=== PATIENT | female | born 1960 | race Caucasian/White ===

== ENCOUNTER 2018-08-11 07:20 | Day surgery (SDC) | payer OTHER ==
[~2018-08-11] VITALS: Ht 160 cm; Wt 56.7 kg
[~2018-08-11 07:20] MED LIST: FALMINA1 EACH PO; OMEGA 3 1,0001 EACH; OMEGA-31000 MG PO
--- NOTE | 2018-08-11 08:44 | NUR ---
08/11/18 0844 Kalyani Gil 0836 PATIENT ARRIVES TO PACU ASLEEP, AWAKENS WITH VERBAL STIMULI, ANSWERS QUESTIONS APPROPRIATELY. RESP EVEN AND UNLABORED, NC AT 2 LITERS TURNED OFF ON ARRIVAL TO PACU. ROOM AIR SATS 99%. PATIENT DENIES PAIN OR NAUSEA. 0840 PATIENT AWAKE OFF/ON. RESP EVEN AND UNLABORED. DR FLORES AND SPOUSE AT BEDSIDE.
--- NOTE | 2018-08-12 12:32 | OR ---
[facility] [address], [place] [address] Signed DATE OF OPERATION: 08/11/2018 SURGEON: Pedro Flores MD PREOPERATIVE DIAGNOSIS: Colon screening. POSTOPERATIVE DIAGNOSIS: Normal colon to cecum. PROCEDURE PERFORMED: Total colonoscopy to cecum. ANESTHESIA: Intravenous sedation (fentanyl 100 mcg, Versed 5 mg). INDICATION: This 58-year-old white woman is a patient of Dr. Marian Alvarado, who is here for a screening colonoscopy. She has long-standing chronic constipation, which is currently no issue for her. She has had no blood per rectum or diarrhea. She has not had colonoscopy in the past. She has no family history of colon cancer. She uses Senna tea for constipation issues, which is effective. She is admitted at this time to undergo a screening colonoscopy. Understands the risks of bleeding, infection, perforation, and findings. The prep was excellent. Complete colonoscopy was undertaken to the cecum without problem. The appendiceal orifice and ileocecal valve were well visualized. There was no sign of diverticular formation, colitis, cancer, polyps, or other abnormality. DESCRIPTION OF PROCEDURE: The patient was brought to the endoscopy suite and placed in lateral decubitus position. Given intravenous sedation to the point of slurred speech and nystagmus. Digital rectal examination was normal. An Olympus video colonoscope was passed in the rectum and manipulated throughout the colon ultimately intubating the cecum itself. The ileocecal valve and appendiceal orifice were normal. The scope was carefully withdrawn and examination throughout showed no sign of abnormality specifically in the diverticular formation, colitis, cancer, polyps, or other abnormality. Retroflexed view of the rectum was normal as well. The scope was removed and the patient was taken to recovery room in good condition. Electronically Signed By: PEDRO FLORES MD 08/12/18 1232 PATIENT NAME: BRAYDON MITCHELL OPERATIVE REPORT DATE OF : 60 REPORT #: [id number] PHYSICIAN: PEDRO FLORES MD PCP: MELISSA ROCA MD REPORT IS CONFIDENTIAL AND NOT TO BE RELEASED WITHOUT AUTHORIZATION [facility] [address], [place] [address] Signed CONCLUDING DIAGNOSIS: Normal colon to cecum. PLAN: Recommend repeat colonoscopy in 10 years or sooner if clinically indicated. I would recommend MiraLAX as an alternative to her current regimen if it becomes ineffective. Pedro Flores MD JM/MODL /[id number] cc: Marian Alvarado MD Copies: MARIAN ALVARADO MD ~ Electronically Signed By: PEDRO FLORES MD 08/12/18 1232 PATIENT NAME: BRAYDON MITCHELL OPERATIVE REPORT DATE OF : 60 REPORT #: [id number] PHYSICIAN: PEDRO FLORES MD PCP: MELISSA ROCA MD REPORT IS CONFIDENTIAL AND NOT TO BE RELEASED WITHOUT AUTHORIZATION
== END 2018-08-11 09:10 | disposition home or self-care (01) ==
LOC: OPS 07:20 → DS 07:20 → OPS 08:30
PROVIDERS: Surgery
PROC: 0DJD8ZZ Inspection of Lower Intestinal Tract, Via Natural or Artificial Opening Endoscopic (ICD-10-PCS; principal; 2018-08-11 08:30)
DX: Z12.11 Encounter for screening for malignant neoplasm of colon (principal)
CPT/HCPCS: 99153; G0500; J2250; J3010; J7120

== ENCOUNTER 2020-04-25 08:55 | Day surgery (SDC) | payer OTHER ==
[~2020-04-25] VITALS: Ht 160 cm; Wt 55.0 kg
[~2020-04-25 08:55] MED LIST changes: +ACETYL L-CARNI500 MG PO; +ASTRAGALUS ROOT1 GM MISC; +CALCIUM + D3 E1 EACH PO; +DEXAMETHASONE4 MG PO; +DIGESTIVE ENZY220 MG PO; +GALZIN50 MG PO; +LORAZEPAM1 MG PO; +MAGNESIUM100 MG PO; +RESTONE CAPSUL1 EACH PO; +TYLENOL325 M1 PO; +ZOFRAN4 MG PO; +[UNRECOGNIZED DRUG - OTHER] PO
--- NOTE | 2020-04-25 10:24 | NUR ---
has been to br.
--- NOTE | 2020-04-25 11:39 | NUR ---
04/25/20 1139 Ela Webber 1133- PT ARRIVES TO PACU AROUSABLE TO VOICE, SLEEPY. OXYGEN SAT HIGH 90'S TO 100% ON 10L VIA MASK. 1136- OXYGEN TITRATED DOWN TO 6L VIA MASK.
--- NOTE | 2020-04-25 12:10 | NUR ---
PT ARRIVED FROM PACU TO DAY SURGERY RM 2. REPORT RECIEVED, PT PROVIDED CRACKERS AND ICE WATER. PT RESTING IN LOCKED AND LOWERED BED, SIDE RAILS UP, CALL LIGHT WITHIN REACH, AT THE BEDSIDE, NO FURTHER REQUESTS AT THIS TIME.
--- NOTE | 2020-04-25 13:47 | NUR ---
1325 AMB TO BR VOIDS 150ML YELLOW URINE.
--- NOTE | 2020-04-25 15:08 | OR ---
[facility] [address], [place] [address] Signed DATE OF OPERATION: 04/25/2020 SURGEON: Pedro Flores MD PREOPERATIVE DIAGNOSIS: Cervical carcinoma, ongoing radiation chemotherapy. POSTOPERATIVE DIAGNOSIS: Cervical carcinoma, ongoing radiation chemotherapy. PROCEDURES: 1. Left subclavian Port-A-Cath device (Bard port catheter) placement. 2. Surgeon-directed fluoroscopy. ANESTHESIA: General LMA, Pedro Quinn CRNA and local 5 mL of 0.25% Marcaine with epinephrine. INDICATIONS: This 59-year-old white woman is a patient of Dr. Dilcia Alvarado and Dr. Kishan Brown, and recently Dr. Marquez and Dr. Reyes. She was found to have a cervical carcinoma, which was not amenable to robotic resection according to the patient, for which she now is undergoing chemo and radiation therapy. A recent infusion of chemotherapy cause severe phlebitis of her vein, and on that basis a central venous catheter via Port-A-Cath has been requested by Dr. Reyes, her oncologist. She was seen promptly a few days ago, anticipating placement of the device today to facilitate her ongoing therapy. The risks of bleeding, infection, pneumothorax, and other unforeseen complications related to placement of the catheter were reviewed with her and her . She understands and wishes to proceed. FINDINGS: Easy access of the left subclavian vein was noted on the first pass, dark nonpulsatile blood was noted. The catheter was placed without problem at the tip of the catheter in the superior vena cava. Good function of catheter was noted. A postprocedure chest x-ray is pending. DESCRIPTION OF PROCEDURE: The patient was brought to the operating room and placed in supine position. Arms at side. She was given a general LMA type anesthetic per Anesthesia preference. Preoperative antibiotic Ancef was given. Sequential compression device stockings used and heparin subcutaneously administered. She has a very thin body habitus. Preparation Electronically Signed By: PEDRO FLORES MD 04/25/20 1508 PATIENT NAME: BRAYDON MITCHELL OPERATIVE REPORT DATE OF : 60 REPORT #: [id number] PHYSICIAN: PEDRO FLORES MD PCP: KISHAN BROWN MD REPORT IS CONFIDENTIAL AND NOT TO BE RELEASED WITHOUT AUTHORIZATION [facility] [address], [place] [address] Signed was made from the angle of the mandible inferiorly over the chest bilaterally. Head was turned to the right, mild Trendelenburg position was maintained. Sterile draping was undertaken and using 0.25% Marcaine, local anesthetic was injected in the left infraclavicular space. Using the Seldinger technique, the left subclavian vein was easily accessed showing dark nonpulsatile blood. Special care was taken in accessing the vein, given her thin body habitus. A flexible J-wire was passed through the needle, and the needle was removed. Fluoroscopy was then employed, which showed the wire to be in the right heart system. Additional and local anesthetic was injected transversely over the left pectoral area. Dissection carried through the skin transversely and a pocket created inferiorly using blunt electrocautery dissection. The port device was partially secured to the pectoralis fascia. wire was emanating from the skin was incised with an #11 blade. Subsequently, dilator and peel-away introducer passed over the wire and the dilator and the wire removed showing vigorous retrograde venous dark bleeding. A previously inspected Groshong type catheter was passed down the sheath and stabilized and the peel-away sheath introducer removed. The patient was then placed in a supine neutral position. Access of the catheter with a heparinized saline syringe showed easy withdrawal of blood and easy infusion of heparinized saline. Under fluoroscopic control, the catheter was withdrawn to the appropriate position in the superior vena cava. The catheter was then tunneled with the enclosed tunneling device to the pocket, attached to the pocket with the enclosed collar device and secured to the pectoralis fascia with interrupted 2-0 Vicryl suture, which had already partially been placed. Percutaneous access with angled Ramirez needle showed easy withdrawal of blood. Care was noted that the catheter was in good alignment without sign of kinking or other problem. Fluoroscopy confirmed the placed catheter to have a good contour in well position. The subcutaneous tissue was reapproximated with interrupted 2-0 Vicryl and skin closed with running subcuticular 3-0 Vicryl. Steri-Strips were applied as was a silver sponge dressing. A postprocedure chest x-ray was anticipated in the recovery room. She suffered no complication. Blood loss was certainly less than 10 mL. Pedro Flores MD Electronically Signed By: PEDRO FOLRES MD 04/25/20 1508 PATIENT NAME: BRAYDON MITCHELL OPERATIVE REPORT DATE OF : 60 REPORT #: [id number] PHYSICIAN: PEDRO FLORES MD PCP: KISHAN BROWN MD REPORT IS CONFIDENTIAL AND NOT TO BE RELEASED WITHOUT AUTHORIZATION [facility] [address] [place] [address] Signed /MODL /[id number] cc: MD Ulysses Wall MD, PH.D. MD Caden Dawson MD Copies: CARLY REYES MD, JUNO WINN, PATRICIA J MD GOSEWEHR, JIM MD ~ Electronically Signed By: PEDRO FLORES MD 04/25/20 1508 PATIENT NAME: BRAYDON MITCHELL OPERATIVE REPORT DATE OF : 60 REPORT #: [id number] PHYSICIAN: PEDRO FLORES MD PCP: KISHAN BROWN MD REPORT IS CONFIDENTIAL AND NOT TO BE RELEASED WITHOUT AUTHORIZATION
== END 2020-04-25 13:30 | disposition home or self-care (01) ==
LOC: DS 08:55
PROVIDERS: ATTEND Surgery
PROC: 05H633Z Insertion of Infusion Device into Left Subclavian Vein, Percutaneous Approach (ICD-10-PCS; 2020-04-25)
PROC: B517ZZA Fluoroscopy of Left Subclavian Vein, Guidance (ICD-10-PCS; 2020-04-25)
PROC: 0JH60WZ Insertion of Totally Implantable Vascular Access Device into Chest Subcutaneous Tissue and Fascia, Open Approach (ICD-10-PCS; principal; 2020-04-25 10:15)
DX: C53.9 Malignant neoplasm of cervix uteri, unspecified (principal); Z79.899 Other long term (current) drug therapy
CPT/HCPCS: 00532; 71045; 77001; 80053; 83615; 83735; 85025; C1788; J0690; J1100; J1644; J1885; J2250; J2405; J2704; J2765; J3010; J7121

== ENCOUNTER 2020-05-07 07:56 | Day surgery (SDC) | payer OTHER ==
[~2020-05-07] VITALS: Ht 160 cm; Wt 53.2 kg
[2020-05-07] MEDS ORDERED: K-TAB ER20 MEQ PO (08:19)
--- NOTE | 2020-05-07 10:46 | NUR ---
PATIENT UPDATED ON SURGICAL SCHEDULE. SHE AND HER VERBALIZE UNDERSTANDING.
--- NOTE | 2020-05-07 11:23 | NUR ---
PATIENT REMOVES HER CONTACTS, GIVES THEM TO HER AND PLACES HER GLASSES.
--- NOTE | 2020-05-07 12:42 | NUR ---
05/07/20 1242 Trina Walker 1035-PT TO PACU IN SUPINE POSITION. EYES CLOSED. DOES NOT RESPOND TO VERBAL STIMULI. BREATHING EASY AND UNLABORED. SPO2 >95% ON 6 L O2 VIA SIMPLE MASK. IV FLUIDS EASILY TO GRAVITY VIA PORT. ELENA PAD IN PLACE WITH SCANT DRAINAGE PRESENT.
--- NOTE | 2020-05-07 15:31 | NUR ---
PT ALERT, ORIENTED AND SUPPORTED BY HER DANIELLE. PT STRUGGLING WITH ALL THAT IS GOING ON IN HER LIFE MEDICALLY. DEBRIEFED, GAVE COMFORT AND PRAYED WITH PT AT HER REQUEST. WILL FOLLOW NEEDED
--- NOTE | 2020-05-09 09:57 | OR ---
[facility] [address], [place] [address] Signed DATE OF OPERATION: 05/07/2020 SURGEON: Marian Alvarado MD MEASUREMENT ANALYST: Dr. Marquez PREOPERATIVE DIAGNOSIS: Stage IIB adenocarcinoma of the cervix. POSTOPERATIVE DIAGNOSIS: Stage IIB adenocarcinoma of the cervix. PROCEDURE: Santos sleeve placement. ANESTHESIA: MAC. ESTIMATED BLOOD LOSS: 25 mL. DRAINS: None. INDICATIONS AND FINDINGS: The patient is a 59-year-old female, 3, para 2, AB1, who was diagnosed with adenocarcinoma of the cervix in January of this year. She has been undergoing chemo radiation and soon be starting intracavitary radiation. Santos sleeve is required for this. At the time of surgery, her exam revealed her cervix to be almost completely flush with the vagina. It was not friable. DESCRIPTION OF PROCEDURE: The patient was prepped and draped in the dorsal lithotomy position. Initially, an open-sided speculum was placed and the cervix was visualized. A tenaculum was placed anteriorly and the uterus sounded to 8 cm. The endocervical canal was then dilated with minimal difficulty to a #8 dilator. Following this, the Santos sleeve was placed. #0 silk sutures were placed at 2, 6, and 10 o'clock previously and tied on to the sleeve. This was then inserted into the cervix and the sutures were then sutured to the cervix and lateral vagina, to hold this in place. Initially, three sutures were placed, but Electronically Signed By: MARIAN ALVARADO MD 05/09/20 0957 PATIENT NAME: BRAYDON MITCHELL OPERATIVE REPORT DATE OF : 60 REPORT #: [id number] PHYSICIAN: MARIAN ALVARADO MD PCP: KISHAN BROWN MD REPORT IS CONFIDENTIAL AND NOT TO BE RELEASED WITHOUT AUTHORIZATION [facility] [address] [place] [id number] Signed unfortunately 2 tore out and this allowed the sleeve to come out of the cervix again. Subsequently, the speculum was removed and replaced with 2 Breanna retractors. The Santos sleeve was replaced into the cervix. The suture at approximately 6 o'clock was intact. Another suture was placed with 0 silk and this was placed at approximately 1 o'clock fairly deep into the vagina and through the sleeve and tied down. This was holding very well and no further attempt was done to place an additional suture. The procedure itself was fairly difficult just because of the length of the cervix and the narrowness of the vaginal canal. Following this, all sponge and needle counts were correct. She tolerated the procedure well, and she was taken to the recovery room in good condition. Marian Alvarado MD PJW/MODL /[id number] cc: Lily Marquez MD, PH.D. Copies: LILY MARQUEZ ~ Electronically Signed By: MARIAN ALVARADO MD 05/09/20 0957 PATIENT NAME: COREY MITCHELLYCChase LESTER OPERATIVE REPORT DATE OF : 60 REPORT #: [id number] PHYSICIAN: MARIAN ALVARADO MD PCP: KISHAN BROWN MD REPORT IS CONFIDENTIAL AND NOT TO BE RELEASED WITHOUT AUTHORIZATION
== END 2020-05-07 13:55 | disposition home or self-care (01) ==
LOC: DS 07:56 → OPS 07:56 → DS 09:45
PROVIDERS: ATTEND Obstetrics & Gynecology
PROC: 0UH Female Reproductive System, Insertion (ICD-10-PCS; principal; 2020-05-07 09:45)
DX: C53.8 Malignant neoplasm of overlapping sites of cervix uteri (principal); I10 Essential (primary) hypertension; J45.909 Unspecified asthma, uncomplicated; E11.9 Type 2 diabetes mellitus without complications; K59.09 Other constipation; Z79.899 Other long term (current) drug therapy; Z20.828 Contact with and (suspected) exposure to other viral communicable diseases; Z79.52 Long term (current) use of systemic steroids
CPT/HCPCS: J1100; J1885; J2001; J2250; J2405; J2704; J7121